=== PATIENT | male | born 1975 | race Caucasian/White ===

== ENCOUNTER 2023-07-04 13:28 | Outpatient (OUT) | payer OTHER, SELFPAY ==
--- NOTE | 2023-07-04 14:52 | P.CN_ITS ---
Consult Note: HPI Data of Consult Patient: new to practice Consult date: 07/04/23 Requesting Physician: Beto Barnard MD Primary Care Provider: MOSHE PRUITT Consult Narrative Reason for consult: left knee pain Narrative: 48yom who presents for evaluation. longstanding left knee pain, states that has been told by surgeon that he is too young for left TKA. imaging reviewed, which shows severe arthritis of left knee. has undergone multiple steroid injections, now no longer working. uses mobic >6 weeks, with some benefit. engaged in >6 weeks of provider directed home exercise program, with minimal benefit. denies adverse med side effects. cc:: CC: Beto Barnard MD Review of Systems ROS Status of ROS 10 or more systems reviewed and unremark able except as noted in history and below Exam Narrative Exam Narrative: Psych-alert and oriented x 3.? Attentive and appropriate, constitutionally normal, displays normal mood and affect per situation.? There are no obvious deficits in memory, reasoning, or intellect. Extremities-lower extremities are warm with minimal edema and palpable pulses. Knee-examination of the left knee reveals tenderness to palpation over the superior, inferior, lateral, and medial aspect of the knee.? Some swelling is noted without erythema. Pain is elicited with flexion and extension of the knee both actively and passively.? Some grinding is noted with these motions.? There is no notable ligamental laxity or instability.? Coordination remains intact.? Gait remains antalgic. Assessment and Plan Assessment and Plan (1) Osteoarthritis of left knee: Qualifiers: Osteoarthritis type: primary Qualified Code(s): M17.12 - Unilateral primary osteoarthritis, left knee Plan 48yom who presents for evaluation. failed conservative measures, as noted. imaging reviewed, as noted. given symptoms and imaging, may benefit from left genicular nerve blocks under fluoroscopic guidance with intention of proceeding to radiofrequency ablation. he is in agreement. medications reviewed. will trial t#3 tid prn. uds obtained. pdmp reviewed. follow up after procedure.
== END 2023-07-04 13:29 | disposition home or self-care (01) ==
PROVIDERS: PCP Nurse Practitioner Family; Visit Provider Anesthesiology
DX: M17.12 Unilateral primary osteoarthritis, left knee (principal)
CPT/HCPCS: G0463